=== PATIENT | female | born 1950 | race Two or more races ===

== ENCOUNTER → 2017-10-26 10:30 | Outpatient (CLI) | payer BC, MEDICARE, OTHER ==
[~2017-10-26 10:30] MED LIST: COREG25 MG PO; FUROSEMIDE20 MG PO; HYDROCODON-ACE1 EAC7 PO; ISOSORBIDE MONO30 M1 PO; LEVEMIR FLEXTOUCH 10; NORVASC5 MG PO; NOVOLOG 100 UNIT/ML; PRINIVIL20 MG PO; VITAMIN D250000 UNIT PO; ZOCOR40 MG PO
[2017-11-24 12:58] VITALS: BMI 39.0
== END | disposition home or self-care (01) ==
LOC: D.US 10:30
DX: N18.5 Chronic kidney disease, stage 5 (principal); N18.4 Chronic kidney disease, stage 4 (severe)

== ENCOUNTER 2017-11-24 08:19 | Day surgery (SDC) | payer BC, MEDICARE, OTHER ==
[~2017-11-24] VITALS: Ht 154.9 cm; Wt 93.4 kg
--- NOTE | ~2017-11-24 | OP ---
PATIENT NAME: CATHY PARK MEDICAL RECORD: [id number] :49 LOCATION:D.OPS ADMISSION DATE: SURGEON: YANET DALTON MD DATE OF OPERATION: 11/24/2017 REFERRING PHYSICIAN: Lyle Sepulveda MD PREOPERATIVE DIAGNOSES: Chronic kidney disease V. POSTOPERATIVE DIAGNOSIS: Chronic kidney disease V. OPERATION PERFORMED: Creation of a Jose Alberto type brachial artery to basilic vein AV fistula, it is the first of 2 planned operations leading to the construction of a translocated basilic vein fistula. SURGEON: Yanet Dalton MD ANESTHESIA: Regional nerve block plus general anesthesia with LMA per FORTINO and Dr. Shahid. PREOPERATIVE NOTE: Ms. Park is a 67-year-old female with severe renal insufficiency. Dr. Sepulveda has referred her to me for dialysis access, it is anticipated she will need dialysis within the next few months. DESCRIPTION OF PROCEDURE: Under a regional block, the patient was placed in supine position, prepped and draped in sterile manner. It was found that the block was inadequate and this was converted during the procedure to general anesthesia with an LMA. I examined her with an ultrasound and found that there were no really suitable vessels in the forearm, although the forearm was the most attractive due to the obesity in the upper arms. It was found that she has a basilic vein dominant drainage in the upper arm. The basilic vein being considerably larger than the cephalic. Both veins also are quite deep in adipose tissue. I elected to perform the basilic vein fistula. I made a transverse incision and dissected the basilic vein and controlled it with atraumatic clamps as needed. Distally, it was transected and bevelled and prepared for anastomosis. It was flushed with heparinized saline and treated with topical papaverine. The brachial artery was exposed and controlled with doubly looped Silastic tapes. An arteriotomy was made and the artery flushed proximally and distally with heparinized saline. The arteriotomy was about 8 mm in length. An end-to-side, end of vein to side of artery anastomosis was then performed with running 7-0 Prolene and when completed, the occluding loops and clamps were released and excellent flow developed immediately within the fistula and there was good hemostasis. The Doppler signal from the distal brachial artery was nearly of a normal high resistance circuit and there was preservation of Doppler pulsatile signals in the radial and ulnar arteries at the wrist. The wounds were irrigated with Ancef/gentamicin solution and then closed without the use of a drain with interrupted inverted 3-0 Vicryl and running intracuticular 4-0 Stratafix. The incision was then sealed with glue and dressed with Maxorb Ag, Tegaderm, and Cavilon skin prep. The patient was awakened and taken to the recovery room. There was about 10-15 mL blood loss during the procedure. It was unreplaced. All sponges, instruments and needles were accounted for. No drain was used. PLAN: The patient can go home this evening if she has transportation and feels OPERATIVE REPORT [id number] CATHY PARK well after observation. She will be asked to call my office Monday and arrange for an appointment to see me later next week or early the following week. She is given a prescription for 10 Roebling 5/325. She can take 1 or if necessary, 2 p.o. q.4 hours p.r.n. pain. TRANSINT:[id number] Voice Confirmation ID: [id number] DOCUMENT ID: [id number] YANET DALTON MD at 1606 CC: LYLE SEPULVEDA MD [id number] DICTATION DATE: 11/24/171948 BOOKSTORE MANAGER: 11/24/172046 [facility] 11/24/17 [id number] [place] [address]
[2017-11-24 08:33] LABS: BASOPHILS 0.1 % (0-2); EOSINOPHILS 2.5 % (0-7); HEMATOCRIT 25.6 % (36.0-48.0); HEMOGLOBIN 8.4 g/dL (12-16); IMMATURE GRANULOCYTES 0.3 % (0-5); LYMPHOCYTES 16.3 % (15-50); MCH 29.4 pg (26.0-34.0); MCHC 32.8 g/dL (31.0-37.0); MCV 89.5 fL (80.0-100.0); MEAN PLATELET VOLUME 9.3 fL (7.4-10.4); MONOCYTES 6.1 % (2-11); NEUTROPHILS 74.7 % (40-80); PLATELET COUNT 146 10x3/uL (130-400); RBC 2.86 10x6/uL (4.00-5.40); RDW 13.2 % (11.5-14.5); WBC 7.9 10x3/uL (4.8-10.8)
[2017-11-24 08:44] LABS: ANION GAP 14.8 mmol/L (8-16); APTT 34.5 SECONDS (22.8-39.4); CALCIUM 8.6 mg/dL (8.5-10.1); CARBON DIOXIDE 23.6 mmol/L (21.0-32.0); CREATININE - SERUM 4.3 mg/dL (0.6-1.3); INR 1.17 (0.85-1.17); POTASSIUM - SERUM 4.4 mmol/L (3.5-5.1); PROTIME 14.5 SECONDS (11.6-15.0)
[2017-11-24] MEDS ORDERED: PRINIVIL20 MG PO (11:51)
[2017-11-24] MEDS ORDERED: ZOCOR40 MG PO (11:52)
[2017-11-24] MEDS ORDERED: ISOSORBIDE MONO30 M1 PO (11:53)
[2017-11-24] MEDS ORDERED: COREG25 MG PO (11:53)
[2017-11-24] MEDS ORDERED: NORVASC5 MG PO (11:53)
[2017-11-24] MEDS ORDERED: NOVOLOG 100 UNIT/ML (11:55)
[2017-11-24] MEDS ORDERED: LEVEMIR FLEXTOUCH 10 (11:56)
[2017-11-24] MEDS ORDERED: FUROSEMIDE20 MG PO (11:57)
[2017-11-24] MEDS ORDERED: VITAMIN D250000 UNIT PO (11:58)
[2017-11-24 12:58] VITALS: Ht 154.9 cm; Wt 93.4 kg
[2017-11-24] MEDS ORDERED: HYDROCODON-ACE1 EAC7 PO (19:37)
== END 2017-11-24 22:00 | disposition home or self-care (01) ==
LOC: D.OPS 08:19 → D.M2 19:56 → D.OPS 22:00
PROVIDERS: Surgery
DX: N18.5 Chronic kidney disease, stage 5 (principal); Z01.812 Encounter for preprocedural laboratory examination

== ENCOUNTER 2018-01-19 05:15 | Day surgery (SDC) | payer BC, MEDICARE, OTHER ==
[2018-01-18 16:20] LABS: INR 1.25 (0.85-1.17); PROTIME 15.4 SECONDS (11.6-15.0)
[2018-01-18 16:23] LABS: BASOPHILS 0.5 % (0-2); EOSINOPHILS 1.9 % (0-7); HEMATOCRIT 32.3 % (36.0-48.0); LYMPHOCYTES 19.8 % (15-50); MCH 26.8 pg (26.0-34.0); MCV 86.6 fL (80.0-100.0); MEAN PLATELET VOLUME 11.5 fL (7.4-10.4); MONOCYTES 6.7 % (2-11); NEUTROPHILS 70.1 % (40-80); RBC 3.73 10x6/uL (4.00-5.40); WBC 9.8 10x3/uL (4.8-10.8)
[2018-01-18 16:24] LABS: PLATELET COUNT 110 10x3/uL (130-400)
[2018-01-18 16:27] LABS: ANION GAP 14.4 mmol/L (8-16); CALCIUM 11.8 mg/dL (8.5-10.1); CARBON DIOXIDE 25.3 mmol/L (21.0-32.0); CREATININE - SERUM 4.9 mg/dL (0.6-1.3); POTASSIUM - SERUM 3.7 mmol/L (3.5-5.1)
[~2018-01-19] VITALS: Ht 154.9 cm; Wt 93.9 kg
--- NOTE | ~2018-01-19 | OP ---
PATIENT NAME: CATHY PARK MEDICAL RECORD: [id number] :49 LOCATION:[facility] ADMISSION DATE: SURGEON: YANET DALTON MD DATE OF OPERATION: 01/19/2018 REFERRED BY: Lyle Sepulveda MD PREOPERATIVE DIAGNOSES: Chronic kidney disease with poor development of left arm AV fistula and steal syndrome. OPERATION PERFORMED: Planned second stage revision of AV fistula with elevation of the vein to create a translocated basilic fistula. This was done without need for a second vascular anastomosis. Also banding of AV fistula for steal syndrome. DIAGNOSIS: ESRD, steal syndrome and complication of AV fistula. SURGEON: Yanet Dalton MD ANESTHESIA: General with LMA per [employer]. PREOPERATIVE NOTE: This pleasant 67-year-old white female with CKD has an immature left brachiobasilic AV fistula, which requires translocation. She also at this early stage does have steal symptoms. She is brought to the operating room at this time to do a planned elevation of the vein and translocation and I plan to do a banding at the same time. DESCRIPTION OF PROCEDURE: Under anesthesia, the patient was placed in supine position, prepped and draped in a sterile manner. I examined her with ultrasound and noted good dilatation of the basilic vein, though it was quite deep with thick adipose tissue layer. I made a longitudinal incision from axilla to antecubital space and mobilized the vein completely dividing perforators and tributaries between clips and Vicryl ties. I preserved the superficial sensory nervous plexus. I decided that there was inadequate length of vein available to place this in a significant subcutaneous tunnel and I thought that there was adequate spacing between the graft and the deeper structures due to adipose tissue, that all that would be needed was just an elevation by reapproximating the subcutaneous tissues deep to the vein and closing the skin over it. Before that, I took a 4-mm angioplasty balloon and inflated it and placed it adjacent to the juxta-anastomotic segment of the vein and placed two 2-0 Prolene ties around this, tied snugly and placed about 1 cm apart. The balloon was deflated and removed. This leaves the graft with a 4-mm lumen in that segment. I did examine her at that point with handheld continuous wave Doppler and noted that there was a good Doppler signal with the vein and fistula occluded and with release of that occlusion, there was diminution of the Doppler signal in the radial and ulnar arteries and also in the palmar arch, but the signals were still I thought strong enough. The vein was treated topically with papaverine as needed and moistened with saline. The wound was injected with Marcaine 0.25% with epinephrine injecting though beneath the skin with Marcaine without epinephrine. A 3-0 Vicryl was used to approximate the subcutaneous tissues and the skin was closed with a running intracuticular 4-0 Stratafix. Dermabond glue was applied, and the wound dressed with Maxorb AG and Tegaderm with Cavilon skin prep. She was awakened and taken to the recovery room in stable condition. OPERATIVE REPORT [id number] CATHY PARK PLAN: I plan for her to go home today and return to see me in my office for dressing change on Monday. She will be given a medication for pain and otherwise she is to resume her home medications and follow up with Dr. Sepulveda as well as appointed. TRANSINT:[id number] Voice Confirmation ID: [id number] DOCUMENT ID: [id number] YANET DALTON MD at 1657 CC: LYLE SEPULVEDA MD [id number] DICTATION DATE: 01/19/18 1001 SUPPORT TECHNICIAN: 01/19/18 1023 [facility] 01/19/[address] [facility] [address] [place] [address]
[~2018-01-19 05:15] MED LIST changes: +BAYER CHEWABLE81 MG PO
[2018-01-19 06:41] VITALS: Ht 154.9 cm; Wt 93.9 kg
== END 2018-01-19 12:00 | disposition home or self-care (01) ==
LOC: D.OPS 05:15
PROVIDERS: Surgery
DX: T82.898A Other specified complication of vascular prosthetic devices, implants and grafts, initial encounter (principal); Y83.8 Other surgical procedures as the cause of abnormal reaction of the patient, or of later complication, without mention of misadventure at the time of the procedure; I12.0 Hypertensive chronic kidney disease with stage 5 chronic kidney disease or end stage renal disease; N18.5 Chronic kidney disease, stage 5; Z87.891 Personal history of nicotine dependence